=== PATIENT | male | born 2000 | race Caucasian/White ===

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

== ENCOUNTER 2019-07-10 15:12 | Emergency (ER) | payer MEDICAID, OTHER ==
[~2019-07-10] VITALS: Ht 182.9 cm; Wt 71.9 kg
[2019-07-10] MEDS ORDERED: FLON1SPR NARES (16:35)
[2019-07-10] MEDS ORDERED: ZYRTTAB8 PO (16:35)
[2019-07-10 16:41] VITALS: BP 110/56
== END 2019-07-10 16:47 | disposition home or self-care (01) ==
LOC: M ED 15:12
DX: H65.02 Acute serous otitis media, left ear (principal); Z88.1 Allergy status to other antibiotic agents

== ENCOUNTER 2019-10-28 14:38 | Emergency (ER) | payer OTHER ==
[~2019-10-28] VITALS: Ht 182.9 cm; Wt 70.4 kg
[~2019-10-28 14:38] MED LIST: FLON1SPR NARES; ZYRTTAB8 PO
[2019-10-28] MEDS ORDERED: ACETAMINOPHEN SUSP DYE FREE 160 MG/5 ML UDC PO ONE (16:15)
[2019-10-28] MEDS ORDERED: IBUPROFEN 100 MG/5 ML SUSP UDC DYE FREE PO ONE (16:15)
[2019-10-28 17:07] LABS: INFLUENZA A AMPLIFICATION NEGATIVE (NEGATIVE); INFLUENZA B AMPLIFICATION NEGATIVE (NEGATIVE)
[2019-10-28 17:20] VITALS: BP 109/62
== END 2019-10-28 17:21 | disposition home or self-care (01) ==
LOC: M ED 14:38
DX: R51 Headache (principal); R11.0 Nausea; R53.1 Weakness; F17.220 Nicotine dependence, chewing tobacco, uncomplicated

== ENCOUNTER 2020-01-12 10:52 | Emergency (ER) | payer OTHER ==
[~2020-01-12] VITALS: Ht 182.9 cm; Wt 69.8 kg
--- NOTE | 2020-01-12 11:42 | REP ---
RIGHT FIFTH DIGIT: Four views of the right 5th digit are performed. There is a mildly angulated displaced fracture at the distal end of the proximal phalanx. Remaining osseous structures are intact. No dislocation is seen. Electronically Signed by Casey Allen MD 01/12/2020 01:35 P
[2020-01-12 12:05] VITALS: BP 106/61
== END 2020-01-12 12:13 | disposition home or self-care (01) ==
LOC: M ED 10:52
DX: S62.616A Displaced fracture of proximal phalanx of right little finger, initial encounter for closed fracture (principal); X50.0XXA Overexertion from strenuous movement or load, initial encounter; Y92.019 Unspecified place in single-family (private) house as the place of occurrence of the external cause; Z88.1 Allergy status to other antibiotic agents

== ENCOUNTER 2020-10-02 14:10 | Emergency (ER) | payer OTHER ==
[~2020-10-02] VITALS: Ht 182.9 cm; Wt 75.8 kg
[2020-10-02 14:10] VITALS: BP 126/67
[2020-10-02 15:17] LABS: INFLUENZA A AMPLIFICATION NEGATIVE (NEGATIVE); INFLUENZA B AMPLIFICATION NEGATIVE (NEGATIVE)
[2020-10-02] MEDS ORDERED: BENZ200C70 PO (15:23)
[2020-10-02] MEDS ORDERED: AFRI0.058 (15:23)
[2020-10-03] MEDS ORDERED: ZITHTAB PO (15:40)
== END 2020-10-02 15:41 | disposition home or self-care (01) ==
LOC: M ED 14:10
DX: J06.9 Acute upper respiratory infection, unspecified (principal); B34.9 Viral infection, unspecified; K01.1 Impacted teeth; Z88.1 Allergy status to other antibiotic agents
CPT/HCPCS: 87502; 99282; U0003

== ENCOUNTER 2020-10-03 14:19 | Emergency (ER) | payer OTHER ==
[~2020-10-03] VITALS: Ht 182.9 cm; Wt 74.7 kg
[~2020-10-03 14:19] MED LIST changes: +AFRI0.058; +BENZ200C70 PO
[2020-10-03] MEDS ORDERED: ZITHTAB PO (15:40)
[2020-10-03 15:52] VITALS: BP 140/70
== END 2020-10-03 15:54 | disposition home or self-care (01) ==
LOC: M ED 14:19
DX: J02.9 Acute pharyngitis, unspecified (principal)